=== PATIENT | male | born 1960 | race Caucasian/White ===

== ENCOUNTER → 2018-01-08 | Outpatient (CLI) | payer BC ==
--- NOTE | 2018-01-08 07:58 | MR ---
EXAMINATION TYPE: MR shoulder LT wo con DATE OF EXAM: 01/08/2018 COMPARISON: NONE HISTORY: RTC disorder, left shoulder pain TECHNIQUE: Multiplanar, multisequence imaging of the left shoulder is performed without contrast. FINDINGS: Rotator Cuff: Some slight increased signal just distal to the acromioclavicular junction is within th e supraspinatus tendon. This signal abnormality does not transverse the tendon. There is diffuse incr eased signal through the distal supraspinatus tendon compatible with tendinosis or possible perforati on. Signal crossing this area is not otherwise identified. There is however small amount of fluid wit hin the subacromial bursa and subdeltoid bursa. Acromioclavicular Joint: Mild hypertrophy without inferior spurring. This can contribute to impingeme nt syndrome. Glenohumeral Joint: Intact. There is likely thinning of the articular cartilage. Labrum: The labrum appears grossly intact given limitation of non-arthrogram study. Biceps Tendon: The long head of biceps is in normal location within bicipital groove. Small amount ph ysiologic fluid is adjacent. Bone marrow signal: No focal abnormal marrow signal is appreciated. Other: No additional significant abnormality is appreciated. IMPRESSION: Thickened distal supraspinatus tendon with a subchondral cyst near its insertion site and fluid withi n the subacromial bursa and subdeltoid bursa. Findings are suggestive for perforation of the distal s upraspinatus tendon.
== END | disposition home or self-care (01) ==
LOC: RADMRIMAIN 06:37
PROVIDERS: ATTEND Family Medicine
DX: M25.812 Other specified joint disorders, left shoulder (principal)

== ENCOUNTER → 2019-06-27 | Outpatient (CLI) | payer BC ==
--- NOTE | 2019-06-27 11:57 | CTL ---
EXAMINATION TYPE: CT Low Dose Lung DATE OF EXAM ORDERED: 06/27/2019 HISTORY: . Lung cancer screening CT DLP: 106.[address] CTDI: 2.8 mGy Automated exposure control for dose reduction was used. SCREENING VISIT: Initial COMPARISON: None TECHNIQUE: Low dose computed tomography scan was performed through the chest at 1 mm thick sections a nd reconstructed images in the coronal plane at [address] DIAGNOSTIC QUALITY: Satisfactory FINDINGS: LUNG NODULES: Present, detailed below: There is a 0.5 cm peripheral based nodule superior lateral right lung apex measuring 0.5 cm. Series 4 image 19. There is a 1.3 cm irregular density in the superior medial right upper lobe. Series 4 image 31. LUNGS: COPD: Severity: Mild Fibrosis: Severity: None Lymph nodes: None Other findings: None RIGHT PLEURAL SPACE: Effusion: None Calcification: None Thickening: None Pneumothorax: None LEFT PLEURAL SPACE: Effusion: None Calcification: None Thickening: None Pneumothorax: None HEART: Heart Size: Normal Coronary calcification: None Pericardial effusion: None OTHER FINDINGS: Upper abdomen: Unremarkable Bony thorax: Normal Supraclavicular region: Normal Other: Ascending thoracic aorta at the level the main pulmonary artery measures 4.0 cm. The main pul monary artery at the bifurcation measures 2.7 cm. IMPRESSION: 1. Minimal peripheral densities at the right lung apex. Follow-up exam in 6 months is recommended. Sc arring could be considered within the differential. Other etiologies including neoplasm remain within the differential. 2. Mild emphysematous change. 3. Ascending thoracic aortic aneurysm measuring 4.0 cm at the main pulmonary artery. FOLLOW UP CT CHEST RECOMMENDATION: Follow-up chest CT in [address] LUNG RAD: 3
== END | disposition home or self-care (01) ==
LOC: RADCTMAIN 07:31
PROVIDERS: ATTEND Family Medicine
DX: Z12.2 Encounter for screening for malignant neoplasm of respiratory organs (principal); J43.9 Emphysema, unspecified; I71.2 Thoracic aortic aneurysm, without rupture; Z87.891 Personal history of nicotine dependence

== ENCOUNTER → 2020-07-20 | Outpatient (CLI) | payer BC | END | disposition home or self-care (01) | LOC: LABWHC1 08:29 | PROVIDERS: ATTEND Family Medicine | DX: R06.02 Shortness of breath (principal); Z20.828 Contact with and (suspected) exposure to other viral communicable diseases | CPT/HCPCS: U0003; C9803 ==

== ENCOUNTER → 2021-10-22 | Outpatient (CLI) | payer BC ==
--- NOTE | 2021-10-22 08:39 | CTL ---
EXAMINATION TYPE: CT Low Dose Lung DATE OF EXAM ORDERED: 10/22/2021 COMPARISON: 06/27/2019 HISTORY: . Low Dose CT Lung Screening CT DLP: [address] CTDI: 1.87 mGy IV CONTRAST USED: None. SCREENING VISIT: First visit COMPARISON: None. TECHNIQUE: Low dose computed tomography scan was performed through the chest at 1 millimeter thick se ctions and reconstructed images in the coronal plane at [address] DIAGNOSTIC QUALITY: Satisfactory FINDINGS: LUNG NODULES: Nodule superior lateral right apex is 5 mm image 28 and is stable. Additional pleural-b ased nodule on the same image medially measures 9 mm versus 12 mm previously. No additional nodules a re noted. LUNGS: COPD: Severity: Mild Fibrosis: Severity:None Lymph nodes: None Other findings: None RIGHT PLEURAL SPACE: Effusion: None Calcification: None Thickening: None Pneumothorax: None LEFT PLEURAL SPACE: Effusion: None Calcification: None Thickening: None Pneumothorax: None HEART: Heart Size: Mildly enlarged Coronary calcification: Mild Pericardial effusion: None Thoracic aorta: Ascending thoracic aorta measures 4.3 cm AP dimension. OTHER FINDINGS: Upper abdomen: No significant abnormality Bony thorax: Degenerative changes Supraclavicular region: No significant abnormalityOther: No significant abnormalityI IMPRESSION: 1. Improved pleural-based right apical nodularity may reflect parenchymal scarring. Continued follow-up in one year is advised. FOLLOW UP CT CHEST RECOMMENDATION: Follow-up screening in one year CT LUNG RAD: LUNG RAD CATEGORY 2 benign
== END | disposition home or self-care (01) ==
LOC: RADCTMAIN 07:53
PROVIDERS: ATTEND Family Medicine
DX: Z12.2 Encounter for screening for malignant neoplasm of respiratory organs (principal); Z87.891 Personal history of nicotine dependence
CPT/HCPCS: 71271

== ENCOUNTER 2022-12-30 11:41 | Observation (INO) | payer BC, OTHER ==
--- NOTE | 2022-12-30 12:25 | ED ---
General Adult HPI - General Chief complaint: Chest Pain Stated complaint: Chest Pain Time Seen by Provider: 12/30/22 11:52 Source: patient Mode of arrival: ambulatory Limitations: no limitations - History of Present Illness Initial comments: Dictation was produced using [employer] dictation software. please excuse any grammatical, word or spelling errors. Chief Complaint: 62-year-old male presents emergency department for chest pain History of Present Illness: Is a 62-year-old male presents emergency department for sharp pleuritic chest pain. Patient states the pain is sharp to his left anterior chest. States it's worse when takes deep breath. Patient does complain of some mild shortness of breath. He has had a fever. He has had a mild cough today. Patient has history of hypertension. Denies any other comorbidities. He has not taken any daily medications. The ROS documented in this emergency department record has been reviewed and confirmed by me. Those systems with pertinent positive or negative responses have been documented in the HPI. All other systems are other negative and/or noncontributory. - Related Data Home Medications Medication Instructions Recorded Confirmed Ibuprofen [Advil] 400 mg PO BID PRN 12/30/22 12/30/22 [place]-3/Dha/Epa/Fish Oil [Fish Oil 1 cap PO DAILY 12/30/22 12/30/22 1,000 mg Softgel] amLODIPine BESYLATE/BENAZEPRIL 1 cap PO DAILY 12/30/22 12/30/22 [Lotrel 10-20 mg Capsule] Allergies Allergy/AdvReac Type Severity Reaction Status Date / Time No Known Allergies Allergy Verified 12/30/22 13:41 Review of Systems ROS Statement: Those systems with pertinent positive or pertinent negative responses have been documented in the HPI. ROS Other: All systems not noted in ROS Statement are negative. Past Medical History Past Medical History: No Reported History History of Any Multi-Drug Resistant Organisms: None Reported Additional Past Surgical History / Comment(s): jocy leg veins, lt neck Past Psychological History: No Psychological Hx Reported Smoking Status: Current every day smoker Past Alcohol Use History: Daily Past Drug Use History: None Reported General Exam - General Exam Comments Initial Comments: PHYSICAL EXAM: General Impression: Alert and oriented x3, not in acute distress HEENT: Normocephalic atraumatic, extra-ocular movements intact, pupils equal and reactive to light bilaterally, mucous membranes moist. Cardiovascular: Heart regular rate and rhythm Chest: Able to complete full sentences, no retractions, no tachypnea, no palpatory tenderness to the chest, pain is not reproducible with truncal rotation Abdomen: abdomen soft, non-tender, non-distended, no organomegaly Musculoskeletal: Pulses present and equal in all extremities, no peripheral edema Motor: no focal deficits noted Neurological: CN II-XII grossly intact, no focal motor or sensory deficits noted Skin: Intact with no visualized rashes Psych: Normal affect and mood Limitations: no limitations Course Vital Signs 12/30/22 12/30/22 12/30/22 11:42 11:53 12:02 Temperature 97.7 F Pulse Rate 72 72 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 fib, QRS 107, QTC 397. prolongation, no QTC prolongation, no ST or T-wave changes noted. There does not appear to be consistent P waves before each QRS. Repeat EKG shows the same suggesting that patient has new-onset A. fib Medical Decision Making - Medical Decision Making Was pt. sent in by a medical professional or institution (, PA, CONVERTER SKIMMER, urgent care, hospital, or [facility]...) When possible be specific @ -No Did you speak to anyone other than the patient for history (EMS, parent, family, police, friend...)? What history was obtained from this source @ - at the bedside who endorses patient's history present illness Did you review nursing and triage notes (agree or disagree)? Why? @ -I reviewed and agree with nursing and triage notes Were old charts reviewed (outside hosp., previous admission, EMS record, old EKG, old radiological studies, urgent care reports/EKG's, [facility] records)? Report findings @ -No old charts were reviewed Differential Diagnosis (chest pain, altered mental status, abdominal pain women, abdominal pain men, vaginal bleeding, musculoskeletal, weakness, fever, dyspnea, syncope, headache, dizziness, GI bleed, back pain, seizure, CVA, palpatations, mental health)? @ -Differential Chest Pain: Stable Angina, Unstable Angina, STEMI, NSTEMI Aortic Dissection, Pneumothorax, Musculoskeletal, Esophageal Spasm GERD, Cholecystitis, Pancreatitis, Zoster, this is not meant to be an all-inclusive list. EKG interpreted by me (3pts min.). @ -See above X-rays interpreted by me (1pt min.). @ -Nonacute CT interpreted by me (1pt min.). @ -None done U/S interpreted by me (1pt. min.). @ -None done What testing was considered but not performed or refused? (CT, X-rays, U/S, labs)? Why? @ -None What meds were considered but not given or refused? Why? @ -None Did you discuss the management of the patient with other professionals (professionals i.e. , PA, CONVERTER SKIMMER, lab, RT, psych nurse, neonatal social worker, lawyers, t eacher, employment officer, manager case management)? Give summary @ -Case discussed with hospitalist for admission Was smoking cessation discussed for >3mins.? @ -No Was critical care preformed (if so, how long)? @ -yes Were there social determinants of health that impacted care today? How? (Homeles sness, low income, unemployed, alcoholism, drug addiction, transportation, low edu. Level, literacy, decrease access to med. care, senior care, rehab)? @ -No Was there de-escalation of care discussed even if they declined (Discuss DNR or withdrawal of care, Hospice)? DNR status @ -No What co-morbidities impacted this encounter? (DM, HTN, Smoking, COPD, CAD, Cancer, CVA, ARF, Chemo, Hep., AIDS, mental health diagnosis, sleep apnea, morbid obesity)? @ -None Was patient admitted / discharged? Hospital course, mention meds given and route, prescriptions, significant lab abnormalities, going to OR and other pertinent info. @ -62-year-old male presents to emergency by for atypical chest pain. Cardiac workup was negative however patient's EKG appears to be abnormal. There is suspicion of AV dissociation versus new-onset A. fib. Patient mildly bradycardic. Troponin is negative. Vital signs remain stable. Patient will be admitted with consultation cardiology. Undiagnosed new problem with uncertain prognosis? @ -No Drug Therapy requiring intensive monitoring for toxicity (Heparin, Nitro, Insulin, Cardizem)? @ -No Were any procedures done? @ -No Diagnosis/symptom? Acute, or Chronic, or Acute on Chronic? Uncomplicated (without systemic symptoms) or Complicated (systemic symptoms)? @ -1. Arrhythmia, suspect onset A. fib Side effects of treatment? @ -No Exacerbation, Progression, or Severe Exacerbation? @ -No Poses a threat to life or bodily function? How? (Chest pain, USA, CT, pneumonia, PE, COPD, DKA, ARF, appy, cholecystitis, CVA, Diverticulitis, Homicidal, Suicidal, threat to staff... and all critical care pts) @ -yes - Lab Data Result diagrams: 12/30/22 12:16 12/30/22 12:16 Lab Results 12/30/22 12/30/22 12/30/22 Range/Units 12:16 12:16 12:16 WBC 8.0 (3.8-10.6) k/uL RBC 5.04 (4.30-5.90) m/uL Hgb 16.5 (13.0-17.5) gm/dL Hct 48.5 (39.0-53.0) % MCV 96.1 (80.0-100.0) fL MCH 32.8 (25.0-35.0) pg MCHC 34.1 (31.0-37.0) g/dL RDW 12.9 (11.5-15.5) % Plt Count 204 (150-450) k/uL MPV 8.4 Neutrophils % 63 % Lymphocytes % 30 % Monocytes % 5 % Eosinophils % 1 % Basophils % 0 % Neutrophils # 5.0 (1.3-7.7) k/uL Lymphocytes # 2.4 (1.0-4.8) k/uL Monocytes # 0.4 (0-1.0) k/uL Eosinophils # 0.0 (0-0.7) k/uL Basophils # 0.0 (0-0.2) k/uL PT 10.8 (9.0-12.0) sec INR 1.0 (<1.2) APTT 23.3 (22.0-30.0) sec D-Dimer 0.47 (<0.60) mg/L FEU Sodium 137 (137-145) mmol/L Potassium 4.4 (3.5-5.1) mmol/L Chloride 105 (98-107) mmol/L Carbon Dioxide 23 (22-30) mmol/L Anion Gap 9 mmol/L BUN 14 (9-20) mg/dL Creatinine 0.80 (0.66-1.25) mg/dL Est GFR (CKD-EPI)AfAm >90 (>60 ml/min/1.73 sqM) Est GFR (CKD-EPI)NonAf >90 (>60 ml/min/1.73 sqM) Glucose 165 H (74-99) mg/dL Calcium 9.1 (8.4-10.2) mg/dL Magnesium 1.8 (1.6-2.3) mg/dL Total Bilirubin 0.9 (0.2-1.3) mg/dL AST 23 (17-59) U/L ALT 22 (4-49) U/L Alkaline Phosphatase 64 (38-126) U/L Troponin I (0.000-0.034) ng/mL Total Protein 7.0 (6.3-8.2) g/dL Albumin 4.1 (3.5-5.0) g/dL Influenza Type A (PCR) (Not Detectd) Influenza Type B (PCR) (Not Detectd) RSV (PCR) (Not Detectd) SARS-CoV-2 (PCR) (Not Detectd) 12/30/22 12/30/22 Range/Units 12:16 12:54 WBC (3.8-10.6) k/uL RBC (4.30-5.90) m/uL Hgb (13.0-17.5) gm/dL Hct (39.0-53.0) % MCV (80.0-100.0) fL MCH (25.0-35.0) pg MCHC (31.0-37.0) g/dL RDW (11.5-15.5) % Plt Count (150-450) k/uL MPV Neutrophils % % Lymphocytes % % Monocytes % % Eosinophils % % Basophils % % Neutrophils # (1.3-7.7) k/uL Lymphocytes # (1.0-4.8) k/uL Monocytes # (0-1.0) k/uL Eosinophils # (0-0.7) k/uL Basophils # (0-0.2) k/uL PT (9.0-12.0) sec INR (<1.2) APTT (22.0-30.0) sec D-Dimer (<0.60) mg/L FEU Sodium (137-145) mmol/L Potassium (3.5-5.1) mmol/L Chloride (98-107) mmol/L Carbon Dioxide (22-30) mmol/L Anion Gap mmol/L BUN (9-20) mg/dL Creatinine (0.66-1.25) mg/dL Est GFR (CKD-EPI)AfAm (>60 ml/min/1.73 sqM) Est GFR (CKD-EPI)NonAf (>60 ml/min/1.73 sqM) Glucose (74-99) mg/dL Calcium (8.4-10.2) mg/dL Magnesium (1.6-2.3) mg/dL Total Bilirubin (0.2-1.3) mg/dL AST (17-59) U/L ALT (4-49) U/L Alkaline Phosphatase (38-126) U/L Troponin I <0.012 (0.000-0.034) ng/mL Total Protein (6.3-8.2) g/dL Albumin (3.5-5.0) g/dL Influenza Type A (PCR) Not Detected (Not Detectd) Influenza Type B (PCR) Not Detected (Not Detectd) RSV (PCR) Not Detected (Not Detectd) SARS-CoV-2 (PCR) Not Detected (Not Detectd) Disposition Clinical Impression: Arrhythmia Disposition: [facility] Condition: Serious Referrals: Osmin Myers MD [Primary Care Provider] - 1-2 days Decision Time: 14:24
--- NOTE | 2022-12-30 12:40 | XR ---
EXAMINATION TYPE: XR chest 2V DATE OF EXAM: 12/30/2022 COMPARISON: None INDICATION: Difficulty breathing TECHNIQUE: Frontal and lateral views of the chest are obtained. FINDINGS: The heart size is normal. The pulmonary vasculature is normal. The lungs are clear. There is increased retrosternal airspace and AP diameter. Pectus jewel may be present. IMPRESSION: 1. No acute pulmonary process.
[2022-12-30 12:44] LABS: ALT 22 U/L (4-49); AST 23 U/L (17-59); African American GFR (CKD) >90 (>60 ml/min/1.73 sqM); Albumin 4.1 g/dL (3.5-5.0); Alkaline Phosphatase 64 U/L (38-126); Anion Gap 9 mmol/L; Blood Urea Nitrogen 14 mg/dL (9-20); Calcium 9.1 mg/dL (8.4-10.2); Carbon Dioxide 23 mmol/L (22-30); Chloride 105 mmol/L (98-107); Glucose 165 mg/dL (74-99); Magnesium 1.8 mg/dL (1.6-2.3); Non-African American GFR(CKD) >90 (>60 ml/min/1.73 sqM); Potassium 4.4 mmol/L (3.5-5.1); Sodium 137 mmol/L (137-145); Total Bilirubin 0.9 mg/dL (0.2-1.3)
[2022-12-30 12:52] LABS: Basophils % (A) 0 %; Eosinophils % (A) 1 %; HCT 48.5 % (39.0-53.0); HGB 16.5 gm/dL (13.0-17.5); Lymphocytes # (A) 2.4 k/uL (1.0-4.8); Lymphocytes % (A) 30 %; MCH 32.8 pg (25.0-35.0); MCHC 34.1 g/dL (31.0-37.0); MCV 96.1 fL (80.0-100.0); Mean Platelet Volume 8.4; Monocytes # (A) 0.4 k/uL (0-1.0); Monocytes % (A) 5 %; Neutrophils % (A) 63 %; Platelet Count 204 k/uL (150-450); RBC 5.04 m/uL (4.30-5.90); RDW 12.9 % (11.5-15.5)
[2022-12-30 13:19] LABS: Partial Thromboplastin Time 23.3 sec (22.0-30.0); Prothrombin Time 10.8 sec (9.0-12.0)
[2022-12-30] MEDS ORDERED: ASPIRIN 81 MG PO STA (14:18)
[2022-12-30] MEDS ORDERED: NALOXONE 0.4 MG/ML 1 ML VIAL IV PRN (14:19)
[2022-12-30] MEDS ORDERED: HEPARIN SODIUM 1,000 UN/ML (10ML VL) IV ONE (14:21)
[2022-12-30] MEDS ORDERED: HEPARIN SODIUM 1,000 UN/ML (10ML VL) IV PRN (14:21)
[2022-12-30] MEDS ORDERED: HEPARIN SOD,PORK IN 0.45% NACL 25,000 UNIT in 0.45% NACL 1 250ML.BAG IV SCH (14:30)
[2022-12-30] MEDS: SODIUM CHLORIDE 0.9% 1,000 ML IV SCH (15:30)
--- NOTE | 2022-12-31 13:59 | P.CRDCN ---
History of Present Illness Consult date: 12/31/22 Requesting physician: Osmin Myers Reason for Consult (text): bradycardia, arrhythmia Chief complaint: chest pain, dizziness History of present illness: This is a pleasant 62-year-old gentleman with prior history of hypertension, nicotine dependence of about one pack per day. Denies any history of hyperlipidemia or diabetes. Family history of CAD in his father who of a [facility] at the age of 57. 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 Admits to drinking about 5-6 beers per day. He is retired but remains quite active. He presented to the emergency department with complaints of sharp left-sided chest discomfort as well as dizziness. The chest discomfort occurred shortly after w aking up and not related to physical activity. Worsened with certain movements and deep inspiration. Pain has currently resolved but continues to have some discomfort with deep inspiration. EKG showed question of atrial fibrillation but upon review does not appear to be atrial fibrillation. Troponin was negative. He felt the dizziness could've been from not eating but did not resolve after eating breakfast yesterday. He has not had symptoms like this before. He does not recall his heart rate ever being low. He remains bradycardic. Heart rate is mostly in the 40s. Currently denies any complaints of dizziness. He is currently on heparin drip. Blood pressure is stable. He denies any shortness of breath, orthopnea or PND. Denies any syncope. Denies any nausea or heartburn. Past Medical History Past Medical History: No Reported History History of Any Multi-Drug Resistant Organisms: None Reported Additional Past Surgical History / Comment(s): jocy leg veins, lt neck Past Anesthesia/Blood Transfusion Reactions: No Reported Reaction Past Psychological History: No Psychological Hx Reported Smoking Status: Current every day smoker Past Alcohol Use History: Daily Past Drug Use History: None Reported Medications and Allergies Home Medications Medication Instructions Recorded Confirmed Type Ibuprofen [Advil] 400 mg PO BID PRN 12/30/22 12/30/22 History [place]-3/Dha/Epa/Fish Oil [Fish Oil 1 cap PO DAILY 12/30/22 12/30/22 History 1,000 mg Softgel] amLODIPine BESYLATE/BENAZEPRIL 1 cap PO DAILY 12/30/22 12/30/22 History [Lotrel 10-20 mg Capsule] Allergies Allergy/AdvReac Type Severity Reaction Status Date / Time No Known Allergies Allergy Verified 12/30/22 13:41 Physical Exam Vitals: Vital Signs Temp Pulse Pulse Resp BP BP Pulse Ox 12/31/22 09:22 99 12/31/22 06:58 97.9 F 41 L 18 116/78 99 12/31/22 02:41 98.4 F 55 L 17 124/65 96 12/30/22 19:18 98.2 F 54 L 18 111/69 95 12/30/22 17:30 51 L 12/30/22 17:09 97.9 F 51 L 18 118/77 98 12/30/22 16:50 45 L 18 104/54 99 12/30/22 15:33 48 L 18 96/73 97 12/30/22 14:00 43 L 18 92/57 98 12/30/22 13:00 76 18 114/75 99 12/30/22 12:02 72 18 125/97 99 12/30/22 11:53 18 L 12/30/22 11:42 97.7 F 72 20 135/83 99 Intake and Output 12/30/22 12/31/22 12/31/22 22:59 06:59 14:59 Intake Total 66 94.57 Balance 66 94.57 Intake: Intake, IV Titration 66 94.57 Amount Heparin Sod,Pork in 0.45% 66 94.57 NaCl 25,000 unit In 0.45 % NaCl 1 250ml.bag @ 11. 134 UNITS/KG/HR 10 mls/hr IV .Q24H COUNTS INCLUDE 234 BEDS AT THE [facility] Rx#: [id number] Other: # Voids 1 1 Weight 89.811 kg PHYSICAL EXAMINATION: This is a 62-year-old gentleman in no apparent distress at the time of my examination. HEENT: Head is atraumatic, normocephalic. Pupils are equal, round. Sclerae ani cteric. Conjunctivae are clear. Mucous membranes of the mouth are moist. Neck is supple. There is no elevated jugular venous pressure. No carotid bruit is heard. CHEST EXAMINATION: Lungs Reveal diminished air entry bilaterally. No wheezes rales or rhonchi. Respirations even and nonlabored. HEART EXAMINATION: Heart regular, bradycardia noted, positive S1 and S2. No S3. No S4. No clicks, rubs or murmurs. ABDOMEN: Soft, nontender. Bowel sounds are heard. No organomegaly noted. EXTREMITIES: 2+ peripheral pulses with no evidence of peripheral edema and no calf tenderness noted. NEUROLOGIC EXAMINATION: Patient is awake, alert and oriented x3. Results 12/30/22 12:16 12/30/22 12:16 Cardiac Enzymes 12/30/22 12/30/22 Range/Units 12:16 12:16 AST 23 (17-59) U/L Troponin I <0.012 (0.000-0.034) ng/mL Coagulation 12/30/22 12/30/22 12/31/22 Range/Units 12:16 21:03 04: PT 10.8 (9.0-12.0) sec APTT 23.3 31.9 H 57.0 H (22.0-30.0) sec CBC 12/30/22 Range/Units 12:16 WBC 8.0 (3.8-10.6) k/uL RBC 5.04 (4.30-5.90) m/uL Hgb 16.5 (13.0-17.5) gm/dL Hct 48.5 (39.0-53.0) % Plt Count 204 (150-450) k/uL Comprehensive Metabolic Panel 12/30/22 Range/Units 12:16 Sodium 137 (137-145) mmol/L Potassium 4.4 (3.5-5.1) mmol/L Chloride 105 (98-107) mmol/L Carbon Dioxide 23 (22-30) mmol/L BUN 14 (9-20) mg/dL Creatinine 0.80 (0.66-1.25) mg/dL Glucose 165 H (74-99) mg/dL Calcium 9.1 (8.4-10.2) mg/dL AST 23 (17-59) U/L ALT 22 (4-49) U/L Alkaline Phosphatase 64 (38-126) U/L Total Protein 7.0 (6.3-8.2) g/dL Albumin 4.1 (3.5-5.0) g/dL Current Medications Generic Name Dose Route Start Last Admin Trade Name Freq PRN Reason Stop Dose Admin Heparin Sodium (Porcine) 0 unit 12/30/22 14:21 12/30/22 22:16 Heparin Sodium 1,000 Un/Ml (10ml Vl) IV 4,000 unit PER PROTOCOL PRN Administration Low PTT Protocol Sodium Chloride 1,000 mls @ 20 mls/hr 12/30/22 14:30 12/30/22 15:30 Saline 0.9% IV 20 mls/hr .Q24H VIOLETTA Administration Naloxone HCl 0.2 mg 12/30/22 14:19 Naloxone 0.4 Mg/Ml 1 Ml Vial IV Q2M PRN Opioid Reversal Intake and Output 12/30/22 12/31/22 12/31/22 22:59 06:59 14:59 Intake Total 66 94.57 Balance 66 94.57 Intake: Intake, IV Titration 66 94.57 Amount Heparin Sod,Pork in 0.45% 66 94.57 NaCl 25,000 unit In 0.45 % NaCl 1 250ml.bag @ 11. 134 UNITS/KG/HR 10 mls/hr IV .Q24H VIOLETTA Rx#: [id number] Other: # Voids 1 1 Weight 89.811 kg 12/30/22 12:16 12/30/22 12:16 Assessment and Plan Assessment: #1 chest pain, atypical, reproducible with deep inspiration, troponin negative 1 no evidence of ischemia on EKG. #2 bradycardia #3 hypertension, currently normotensive #4 dizziness could be related to underlying bradycardia Plan: From cardiology's perspective will obtain a 2-D echo with Doppler study. Hold antihypertensives at this time his blood pressure is 110s to 120s systolic. D iscontinue IV heparin is no evidence of atrial fibrillation. We'll continue to monitor the patient provide further recommendations accordingly. QUALITY IMPROVEMENT CONSULTANT note has been reviewed, I agree with a documented findings and plan of care. Patient was seen and examined.
[2022-12-31] MEDS: SODIUM CHLORIDE 0.9% 1,000 ML IV SCH (18:13)
[2023-01-01] MEDS ORDERED: IPRATROPIUM-ALBUTEROL 3 ML NEB INHALATION PRN (01:06)
--- NOTE | 2023-01-01 01:17 | P.HPIM ---
History of Present Illness H&P Date: 12/31/22 Chief Complaint: Chest pain Patient is a 62-year-old male without history of hypertension currently everyday smoker presents to ER with complaints of chest pain/discomfort while he was at rest. Mainly mid retrosternal and worsens with deep breathing. No radiation of the pain. Mild dizziness. No diaphoresis. Patient denies any fever or chills. No cough or sputum production. Denies any recent illnesses. No leg swelling or calf tenderness. Patient does drink daily about 5-6 beers and also smokes about half a pack a day. Denies any recent travel or sick contacts at home. On admission EKG showed atrial fibrillation with slow ventricular rate. Chest x- ray showed no acute cardiopulmonary process. Laboratory showed WBC 8.0 hemoglobin 16.5 and platelets 204 D-dimer 0.47 not elevated Sodium 147 potassium 4.4 chloride 105 bicarb is 23 BUN 14 and creatinine 0.8 and blood sugar is 165 on admission troponin x1 negative and TSH level is 0.810 Influenza A, B, RSV and COVID-19 PCR not detected. Review of Systems Constitutional: Patient denies any fever or chills . no Generalized weakness. Abdomen: Patient denied any nausea or vomiting or abd. pain Cardiovascular: Patient does have chest pain with deep breathing. No short of breath no palpitations. No leg swelling. Respiratory: patient denied any cough . no sputum production. No shortness of breath Neurologic: Patient denied any numbness or tingling headache. Musculoskeletal: Patient denies any complaints of joint swelling or deformity. Skin: Negative Psychiatric: Negative Endocrine: No heat or cold intolerance. No recent weight gain. Genitourinary: No dysuria or hematuria. All other 14 point ROS negative except the above Past Medical History Past Medical History: No Reported History History of Any Multi-Drug Resistant Organisms: None Reported Additional Past Surgical History / Comment(s): jocy leg veins, lt neck Past Anesthesia/Blood Transfusion Reactions: No Reported Reaction Past Psychological History: No Psychological Hx Reported Smoking Status: Current every day smoker Past Alcohol Use History: Daily Past Drug Use History: None Reported Medications and Allergies Home Medications Medication Instructions Recorded Confirmed Type Ibuprofen [Advil] 400 mg PO BID PRN 12/30/22 12/30/22 History [place]-3/Dha/Epa/Fish Oil [Fish Oil 1 cap PO DAILY 12/30/22 12/30/22 History 1,000 mg Softgel] amLODIPine BESYLATE/BENAZEPRIL 1 cap PO DAILY 12/30/22 12/30/22 History [Lotrel 10-20 mg Capsule] Allergies Allergy/AdvReac Type Severity Reaction Status Date / Time No Known Allergies Allergy Verified 12/30/22 13:41 Physical Exam Vitals: Vital Signs Temp Pulse Pulse Resp BP BP Pulse Ox 12/31/22 09:22 99 12/31/22 06:58 97.9 F 41 L 18 116/78 99 12/31/22 02:41 98.4 F 55 L 17 124/65 96 12/30/22 19:18 98.2 F 54 L 18 111/69 95 12/30/22 17:30 51 L 12/30/22 17:09 97.9 F 51 L 18 118/77 98 12/30/22 16:50 45 L 18 104/54 99 12/30/22 15:33 48 L 18 96/73 97 12/30/22 14:00 43 L 18 92/57 98 12/30/22 13:00 76 18 114/75 99 12/30/22 12:02 72 18 125/97 99 12/30/22 11:53 18 L 12/30/22 11:42 97.7 F 72 20 135/83 99 Intake and Output 12/30/22 12/31/22 12/31/22 22:59 06:59 14:59 Intake Total 66 94.57 Balance 66 94.57 Intake: Intake, IV Titration 66 94.57 Amount Heparin Sod,Pork in 0.45% 66 94.57 NaCl 25,000 unit In 0.45 % NaCl 1 250ml.bag @ 11. 134 UNITS/KG/HR 10 mls/hr IV .Q24H [facility] Rx#: [id number] Other: # Voids 1 1 Weight 89.811 kg PHYSICAL EXAMINATION: Patient is lying in the bed comfortably, no acute distress, awake alert and oriented.. HEENT: Normocephalic. Neck is supple. Pupils reactive. Nostrils clear. Oral cavity is moist. Neck reveals no JVD, carotid bruits, or thyromegaly. CHEST EXAMINATION: Trachea is central. Symmetrical expansion. No wheezing or rhonchi. Bibasilar diminished sounds.. CARDIAC: Normal S1, S2 with no gallops. No murmurs ABDOMEN: Soft. Bowel sounds present. Nontender. No organomegaly. No abdominal bruits. Extremities: reveal no edema. No clubbing or cyanosis Neurologically awake, alert, oriented x3 with well-coordinated movements. No focal deficits noted Skin: No rash or skin lesions. Psychiatric: Coperative. Nonsuicidal, Musculoskeletal: No joint swelling or deformity. Normal range of motion. Results CBC & Chem 7: 12/30/22 12:16 12/30/22 12:16 Labs: Abnormal Lab Results - Last 24 Hours (Table) 12/30/22 12/30/22 12/31/22 Range/Units 12:16 21:03 04: APTT 31.9 H 57.0 H (22.0-30.0) sec Glucose 165 H (74-99) mg/dL Thrombosis Risk Factor Assmnt - DVT/VTE Prophylaxis DVT/VTE Prophylaxis: Pharmacologic Prophylaxis ordered - Choose All That Apply Any of the Below Risk Factors Present?: No Other Risk Factors: Yes Each Risk Factor Represents 2 Points: Age 61-74 years Other congenital or acquired thrombophilia - If yes, enter type in comment: No Thrombosis Risk Factor Assessment Total Risk Factor Score: 2 Thrombosis Risk Factor Assessment Level: Low Risk Assessment and Plan Assessment: Pleuritic chest pain, worsens with deep breathing. D-dimer not elevated. No evidence of pneumonia on chest x-ray. Questionable atrial fibrillation with slow ventricular rate on EKG. No evidence of atrial fibrillation as per cardiology evaluation. Sinus bradycardia Hypertension. Blood pressure is not elevated currently Ongoing nicotine addiction Daily alcohol use GI and DVT prophylaxis Plan: Patient will be continued on telemetry monitoring. Troponin x1 negative and D- dimer is not elevated. TSH level within normal limits. No evidence of pneumonia on chest x-ray. Cardiology is on board. 2D echocardiogram was ordered. Will be started on DuoNebs as needed for shortness of breath and increase deep breathing exercise. Follow-up CBC and BMP tomorrow. Smoking cessation and alcohol abstinence has been counseled extensively. Time with Patient: Greater than 30
[2023-01-01 04:29] LABS: African American GFR (CKD) >90 (>60 ml/min/1.73 sqM); Anion Gap 4 mmol/L; Blood Urea Nitrogen 14 mg/dL (9-20); Calcium 8.4 mg/dL (8.4-10.2); Carbon Dioxide 27 mmol/L (22-30); Chloride 108 mmol/L (98-107); Glucose 88 mg/dL (74-99); Non-African American GFR(CKD) >90 (>60 ml/min/1.73 sqM); Potassium 5.1 mmol/L (3.5-5.1); Sodium 139 mmol/L (137-145)
[2023-01-01] MEDS ORDERED: HEPARIN SODIUM,PORCINE/PF 5,000 UNIT/0.5 ML SYRINGE SQ SCH (08:00)
[2023-01-01 08:26] VITALS: RESP 16
[2023-01-01] MEDS ORDERED: FOLIC ACID 1 MG TAB PO SCH (09:00)
[2023-01-01] MEDS ORDERED: THIAMINE 100 MG TAB PO SCH (09:00)
[2023-01-01] MEDS ORDERED: ASPIRIN 81 MG PO SCH (09:00)
[2023-01-01] MEDS: FAMOTIDINE 20 MG TAB PO SCH ×2 (09:16→09:19)
[2023-01-01 10:36] LABS: Basophils # (A) 0.04 X 10*3/uL (0.00-0.10); Basophils % (A) 0.7 %; Eosinophils # (A) 0.11 X 10*3/uL (0.04-0.35); HCT 43.9 % (39.6-50.0); HGB 14.7 g/dL (13.0-17.0); Immature Grans, Automated 0.2 %; Lymphocytes # (A) 2.74 X 10*3/uL (0.90-5.00); MCH 32.5 pg (27.0-32.0); MCHC 33.5 g/dL (32.0-37.0); MCV 96.9 fL (80.0-97.0); Mean Platelet Volume 10.7 fL (9.5-12.2); Monocytes # (A) 0.48 X 10*3/uL (0.20-1.00); Monocytes % (A) 8.6 %; NRBC Per 100 WBC 0 /100 WBCS (0.0-0.0); Neutrophils # (A) 2.21 X 10*3/uL (1.80-7.70); Neutrophils % (A) 39.5 %; Platelet Count 167 X 10*3/uL (140-440); RBC 4.53 X 10*6/uL (4.40-5.60); RDW 13.2 % (11.5-14.5); WBC 5.59 X 10*3/uL (4.50-10.00)
--- NOTE | 2023-01-01 11:09 | P.PN ---
Subjective Progress Note Date: 01/01/23 This is a pleasant 62-year-old gentleman with prior history of hypertension, nicotine dependence of about one pack per day. Denies any history of hyperlipidemia or diabetes. Family history of CAD in his father who of a NH at the age of 57. 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 Admits to dr laraing about 5-6 beers per day. He is retired but remains quite active. He presented to the emergency department with complaints of sharp left-sided chest discomfort as well as dizziness. The chest discomfort occurred shortly after waking up and not related to physical activity. Worsened with certain movements and deep inspiration. Pain has currently resolved but continues to have some discomfort with deep inspiration. EKG showed question of atrial fibrillation but upon review does not appear to be atrial fibrillation. There are brief episodes of AV block noted. Troponin was negative. He felt the dizziness could've been from not eating but did not resolve after eating breakfast yeste rday. He has not had symptoms like this before. He does not recall his heart rate ever being low. He remains bradycardic. Heart rate is mostly in the 40s. Currently denies any complaints of dizziness. He is currently on heparin drip. Blood pressure is stable. He denies any shortness of breath, orthopnea or PND. Denies any syncope. Denies any nausea or heartburn. 01/01/2023 Patient was seen and examined sitting in a chair. He is overall feeling better. Denies any further complaints of dizziness. Denies any further complaints of chest discomfort. Continues to be bradycardic with no evidence of AV block at this time. Heart rate in the high 30s to 40s mostly. Blood pressure is well- controlled off antihypertensives. Echocardiogram to be done today. Objective - Vital Signs Vital signs: Vital Signs Temp 98.2 F 01/01/23 07:00 Pulse 45 L 01/01/23 07:00 Resp 16 01/01/23 07:00 BP 102/69 01/01/23 07:00 Pulse Ox 97 01/01/23 07:00 FiO2 Intake & Output 12/31/22 01/01/23 01/01/23 18:59 06:59 18:59 Intake Total 236 118 Balance 236 118 Intake: Oral 236 118 Other: # Voids 3 1 - Exam PHYSICAL EXAMINATION: This is a 62-year-old gentleman in no apparent distress at the time of my examination. HEENT: Head is atraumatic, normocephalic. Pupils are equal, round. Sclerae anicteric. Conjunctivae are clear. Mucous membranes of the mouth are moist. Neck is supple. There is no elevated jugular venous pressure. No carotid bruit is heard. CHEST EXAMINATION: Lungs Reveal diminished air entry bilaterally. No wheezes rales or rhonchi. Respirations even and nonlabored. HEART EXAMINATION: Heart regular, bradycardia noted, positive S1 and S2. No S3. No S4. No clicks, rubs or murmurs. ABDOMEN: Soft, nontender. Bowel sounds are heard. No organomegaly noted. EXTREMITIES: 2+ peripheral pulses with no evidence of peripheral edema and no calf tenderness noted. NEUROLOGIC EXAMINATION: Patient is awake, alert and oriented x3. - Labs CBC & Chem 7: 01/01/23 03:41 01/01/23 03:46 Labs: Abnormal Lab Results - Last 24 Hours (Table) 01/01/23 Range/Units 03:46 Chloride 108 H (98-107) mmol/L Assessment and Plan Assessment: #1 chest pain, atypical, reproducible with deep inspiration, troponin negative 1 no evidence of ischemia on EKG. #2 bradycardia #3 hypertension, currently normotensive #4 dizziness could be related to underlying bradycardia #5 nicotine dependence Plan: From cardiology's perspective will obtain a 2-D echo with Doppler study today. Continue to Hold antihypertensives at this time his blood pressure is 110s to 120s systolic. If there is no significant abnormalities noted on echocardiogram and patient remains asymptomatic with no further evidence of AVB patient may be discharged home and obtain an event monitor from our office. Anticipate scheduling outpatient stress testing. LEASING ASSOCIATE note has been reviewed, I agree with a documented findings and plan of care. Patient was seen and examined.
--- NOTE | 2023-01-01 13:46 | CA ---
Transthoracic Echo Report Name: Jovon Bowers Age: 62 Gender: M : 1960 Exam Date: 01/01/2023 10:28 Exam Location: [facility] Ht (in): 73 Wt (lb): 191 Ordering Physician: Otilia Benson MD ([id number]) Attending/Referring Phys: Manager Of Distribution Lynn Beebe RDCS Procedure CPT: Indications: CP Cardiac Hx: Technical Quality: Good Contrast 1: Total Dose (mL): Contrast 2: Total Dose (mL): MEASUREMENTS (Male / Female) Normal Values 2D ECHO LV Diastolic Diameter PLAX 5.6 cm 4.2 - 5.9 / 3.9 - 5.3 cm LV Systolic Diameter PLAX 4.4 cm IVS Diastolic Thickness 0.9 cm 0.6 - 1.0 / 0.6 - 0.9 cm LVPW Diastolic Thickness 0.9 cm 0.6 - 1.0 / 0.6 - 0.9 cm LV Relative Wall Thickness 0.3 RV Internal Dim ED PLAX 4.6 cm LA Systolic Diameter LX 4.2 cm 3.0 - 4.0 / 2.7 - 3.8 cm LV Diastolic Volume MOD BP 141.5 cm??? 67 - 155 / 56 - 104 cm??? LV Systolic Volume MOD BP 51.9 cm??? 22 - 58 / 19 - 49 cm??? LV Ejection Fraction MOD BP 63.3 % >= 55 % LV Diastolic Volume MOD 4C 123.2 cm??? LV Systolic Volume MOD 4C 50.3 cm??? LV Ejection Fraction MOD 4C 59.2 % LV Diastolic Length 4C 7.6 cm LV Systolic Length 4C 6.4 cm LV Diastolic Volume MOD 2C 150.0 cm??? LV Systolic Volume MOD 2C 46.1 cm??? LV Ejection Fraction MOD 2C 69.3 % LV Diastolic Length 2C 6.9 cm LV Systolic Length 2C 5.3 cm LA Volume 124.0 cm??? 18 - 58 / 22 - 52 cm??? M-MODE Aortic Root Diameter MM 4.3 cm MV E Point Septal Separation 0.5 cm AV Cusp Separation MM 2.3 cm DOPPLER AV Peak Velocity 147.5 cm/s AV Peak Gradient 8.7 mmHg MV Area PHT 3.7 cm??? Mitral E Point Velocity 59.5 cm/s Mitral A Point Velocity 37.5 cm/s Mitral E to A Ratio 1.6 MV Deceleration Time 206.8 ms MV E' Velocity 9.1 cm/s Mitral E to MV E' Ratio 6.6 TR Peak Velocity 258.2 cm/s TR Peak Gradient 26.7 mmHg Right Ventricular Systolic Press 31.4 mmHg FINDINGS Left Ventricle Left ventricular ejection fraction is estimated at 55-60 %. Left ventricular cavity size normal. Left ventricular wall thickness normal. No obvious regional wall motion abnormalities. Right Ventricle Moderate right ventricular dilatation. Right ventricular systolic pressure within normal limits. Right Atrium Mild right atrial dilatation. Left Atrium Mildly increased left atrial diameter. Severely increased left atrial volume. Mildly increased left atrial area. Mitral Valve Structurally normal mitral valve. Mild mitral regurgitation. Aortic Valve Trileaflet aortic valve. No aortic valve stenosis or regurgitation. Tricuspid Valve Structurally normal tricuspid valve. Mild to moderate tricuspid regurgitation. Pulmonic Valve Structurally normal pulmonic valve. Mild pulmonic regurgitation. Pericardium Normal pericardium. No pericardial effusion. Aorta Moderate aortic dilatation at the level of the sinuses of valsalva 43 mm CONCLUSIONS 1. Normal left ventricle size and systolic function 2. Moderately dilated right ventricle with no evidence of pulmonary hypertension 3. Mild mitral and pulmonic regurgitation 4. [id number] tricuspid regurgitation Previewed by: Dr. Otilia Benson MD (Electronically Signed) Final Date: 01 January 2023 13:46
[2023-01-01 14:31] VITALS: BP 130/81; PULSE 46; TEMP 97.5
== END 2023-01-01 14:27 | disposition home or self-care (01) ==
LOC: EC 11:41 → 3SCARD 14:35 → 6NMEDSUR 14:54
PROVIDERS: ADMIT Family Medicine; ATTEND Family Medicine
DX: R07.89 Other chest pain (principal); R00.1 Bradycardia, unspecified; R42 Dizziness and giddiness; I10 Essential (primary) hypertension; F10.20 Alcohol dependence, uncomplicated; F17.200 Nicotine dependence, unspecified, uncomplicated; Z20.822 Contact with and (suspected) exposure to COVID-19; Z79.899 Other long term (current) drug therapy; Z82.49 Family history of ischemic heart disease and other diseases of the circulatory system
CPT/HCPCS: 96361; 96366 ×3; 96372; 96376 ×2; 96365; 99285; 36415; 94760; 93005; 93306; 85379; 80053; 80048; 84443; 83735; 84484; 85025 ×2; 85610; 85730 ×3; 83036; 87636; 71046; G0378 ×3; J1644 ×3

== ENCOUNTER → 2023-03-02 | Outpatient (CLI) | payer OTHER ==
[2023-03-02 21:10] LABS: HCT 51.6 % (39.6-50.0); HGB 17.5 d/dL (12.0-15.0); MCH 33.1 pg (27.0-32.0); MCHC 33.9 d/dL (32.0-37.0); MCV 97.7 FL (80.0-97.0); NRBC Per 100 WBC 0 X 10*3/uL (0.00-0.01); Platelet Count 176 X 10*3/uL (140-440); RBC 5.28 X 10*6/uL (4.40-5.60); RDW 13.2 % (11.5-14.5); WBC 6.19 X 10*3/uL (4.50-10.00)
[2023-03-02 21:36] LABS: Blood Urea Nitrogen 14.7 mg/dL (9.0-27.0); Carbon Dioxide 22.6 mmol/L (21.6-31.8); Chloride 105 mmol/L (96-109); Potassium 4.3 mmol/L (3.5-5.5); Sodium 140 mmol/L (135-145)
== END | disposition home or self-care (01) ==
LOC: LABPAT 10:45
PROVIDERS: ATTEND Internal Medicine Interventional Cardiology
DX: Z01.812 Encounter for preprocedural laboratory examination (principal); R94.39 Abnormal result of other cardiovascular function study
CPT/HCPCS: 80051; 82565; 84520; 85027

== ENCOUNTER 2023-03-20 07:39 | Day surgery (SDC) | payer OTHER ==
[2023-03-16 10:32] VITALS: BMI 25.4
[~2023-03-20 07:39] MED LIST: ALPRAZolam 0.25 MG TAB PO PRN; ALPRAZolam 0.5 MG TAB PO PRN; ASPIRIN 325 MG TAB PO STA; NITROGLYCERIN SL TABS 0.4 MG TAB SUBLINGUAL PRN; SODIUM CHLORIDE 0.9% 1,000 ML in EMPTY BAG 1 BAG IV SCH
[2023-03-20 08:10] VITALS: RESP 16; TEMP 97.6
[2023-03-20] MEDS ORDERED: HEPARIN SODIUM 1,000 UN/ML (10ML VL) ONE (08:24)
[2023-03-20] MEDS ORDERED: fentaNYL (PF) 50 MCG/ML 2 ML AMP ONE (08:25)
[2023-03-20] MEDS ORDERED: VERAPAMIL 2.5 MG/ML 2 ML AMP ONE (08:25)
[2023-03-20] MEDS ORDERED: fentaNYL (PF) 50 MCG/1 ML VIAL IVP ONE (09:27)
[2023-03-20] MEDS ORDERED: LIDOCAINE 1% INJ 10MG/ML (5 ML VIAL-PF) SQ ONE (09:31)
[2023-03-20] MEDS ORDERED: VERAPAMIL SYRINGE (5 MG/10 ML) INTRAARTER ONE (09:33)
[2023-03-20] MEDS ORDERED: MIDAZOLAM 2 MG/2 ML VIAL IVP ONE (09:35)
[2023-03-20] MEDS ORDERED: HEPARIN SODIUM 1,000 UN/ML (10ML VL) IV ONE (09:37)
[2023-03-20] MEDS ORDERED: IOPAMIDOL-370 100ML BTL INJ ONE (09:43)
[2023-03-20] MEDS ORDERED: RX INFO: IV CONTRAST WAS GIVEN 1 EACH MISC MISCELLANE PRN (09:59)
[2023-03-20] MEDS ORDERED: SODIUM CHLORIDE 0.9% 1,000 ML IV SCH (10:00)
--- NOTE | 2023-03-20 10:05 | P.CARDCATH ---
Date of Procedure: 03/20/23 Description of Procedure: Cardiac Catheterization: The patient is a 62-year-old male with a known history hypertension and hyperlipidemia, chronic tobacco use who had an abnormal MPI. Recommendations were made regarding cardiac catheterization, the risks and the complications were discussed with the patient who is in full understanding and agreement. 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 Using Xylocaine Anesthesia and Seldinger technique, a 6-Sinhala sheath was introduced in the right radial artery . Subsequently, selective coronary angiography was performed using a 5-Sinhala 3.5 bend Jeff catheter. Multiple views of the coronary artery including hemiaxial views were obtained. The right Jeff catheter was used to cross the aortic valve and LVEDP was calculated. Following that, catheter and sheath were removed. Hemostasis was obtained with deployment of TR band . There was no immediate complication. Patient was returned to room in stable condition. Of note, the patient received a total of 4500 units of intravenous heparin as well as intra-arterial verapamil. Findings: Left main: This is a large sized vessel, bifurcating into LAD and circumflex, left main has no high-grade stenosis LAD: This is a large size vessel reaching to the apex tapers down distally, the LAD has no evidence of obstructive disease Left circumflex: This is a nondominant vessel, giving rise to a large obtuse marginal branch, the left circumflex in the mid segment has 20-30% plaque RCA: This is a large dominant vessel, bifurcating distally to PDA and PLV. The midright coronary artery has a 20-30% plaque Left Ventriculogram: Not performed Hemodynamics: There was no gradient across the aortic valve, LVEDP was 12-15 mmHg Conclusion: 1. Mild disease in the mid RCA and circumflex 2. No obstructive disease in the LAD and left main 3. Right dominance 4. Normal LVEDP Recommendations: The patient will continue on the aggressive coronary risks modifications including smoking cessation. The findings and the recommendations were discussed with the patient and the family and they were in full understanding and agreement. Duration of sedation is 13 minutes.
[2023-03-20 13:16] VITALS: BP 127/84; PULSE 50
[2023-03-21] MEDS ORDERED: ATORVASTATIN 40 MG TAB PO SCH (09:00)
[2023-03-21] MEDS ORDERED: CLOPIDOGREL 75 MG TAB PO SCH (09:00)
[2023-03-21] MEDS ORDERED: ASPIRIN 81 MG PO SCH (09:00)
[2023-03-21] MEDS ORDERED: lisinopriL 5 MG TAB PO SCH (09:00)
== END 2023-03-20 13:52 | disposition home or self-care (01) ==
LOC: CATHCVL 07:39
PROVIDERS: ATTEND Internal Medicine Interventional Cardiology
DX: I25.10 Atherosclerotic heart disease of native coronary artery without angina pectoris (principal); I10 Essential (primary) hypertension; E78.5 Hyperlipidemia, unspecified; Z82.49 Family history of ischemic heart disease and other diseases of the circulatory system; F17.210 Nicotine dependence, cigarettes, uncomplicated
CPT/HCPCS: 93454; J2250; J2001; J1644; Q9967; J3010; 93458

== ENCOUNTER 2023-04-28 12:14 | Emergency (ER) | payer OTHER ==
[2023-04-28] MEDS ORDERED: LORazepam 2 MG/ML INJ IV STA (12:37)
--- NOTE | 2023-04-28 12:54 | ED ---
SOB HPI - General Chief Complaint: Shortness of Breath Stated Complaint: Anxiety, History of TIA,AFIB Time Seen by Provider: 04/28/23 12:25 Source: patient, EMS Mode of arrival: EMS - History of Present Illness Initial Comments: This patient is a 62-year-old man who progressive evaluation for constellation of symptoms that started this morning around 10:30. The patient states that at the time he was driving. He noticed that he was feeling short of breath. He is feeling dizzy and anxious as well. The patient states he had similar symptoms March 14, was seen at a hospital in [place], and was told that he had a stroke. He was also having tingling of his left side. Patient states he did not have any residual deficits from that episode. Patient denies headache, ch hipolito in speech or swallowing, weakness or numbness of the extremities. MD Complaint: shortness of breath, anxiety Onset/Timin -: hour(s) Consistency: constant Improves With: nothing Worsens With: nothing Treatments Prior to Arrival: none - Related Data Home Oxygen Therapy: No Home Medications Medication Instructions Recorded Confirmed Widen-3/Dha/Epa/Fish Oil [Fish Oil 1 cap PO DAILY 12/30/22 04/28/23 1,000 mg Softgel] Apixaban [Eliquis] 5 mg PO BID 04/28/23 04/28/23 Rosuvastatin [Crestor] 10 mg PO DAILY 04/28/23 04/28/23 lisinopriL [Zestril] 10 mg PO DAILY 04/28/23 04/28/23 Allergies Allergy/AdvReac Type Severity Reaction Status Date / Time wheat Allergy nasal Verified 04/28/23 14:41 drainage Review of Systems ROS Statement: Those systems with pertinent positive or pertinent negative responses have been documented in the HPI. ROS Other: All systems not noted in ROS Statement are negative. Constitutional: Denies: fever, chills Respiratory: Reports: dyspnea. Denies: cough, wheezes Cardiovascular: Reports: palpitations. Denies: chest pain, edema, syncope Gastrointestinal: Denies: abdominal pain, nausea, vomiting, diarrhea Genitourinary: Denies: dysuria, hematuria Musculoskeletal: Denies: back pain Skin: Denies: rash Neurological: Denies: headache, weakness Psychiatric: Reports: anxiety Past Medical History Past Medical History: CVA/TIA Additional Past Medical History / Comment(s): had CVA on 03-14-23-no residual (symptoms at time of CVA loss complete rt side of body-lasted about 2-3 minutes- had fall/no injuries),December 2022 had chest discomfort w/ admission to [facility], abn stress test February 2023 History of Any Multi-Drug Resistant Organisms: None Reported Additional Past Surgical History / Comment(s): jocy leg veins procedures, lt neck saliva gland removed 1980d Past Anesthesia/Blood Transfusion Reactions: No Reported Reaction Additional Past Anesthesia/Blood Transfusion Reaction / Comment(s): no hx blood transfusion Past Psychological History: No Psychological Hx Reported Smoking Status: Current every day smoker - Past Family History Mother Family Medical History: Cancer Father Family Medical History: Myocardial Infarction (PR) Additional Family Medical History / Comment(s): w/ PR at age 57 General Exam General appearance: alert, anxious Head exam: Present: atraumatic, normocephalic Eye exam: Present: normal appearance. Absent: scleral icterus, conjunctival injection ENT exam: Present: mucous membranes dry Neck exam: Present: normal inspection Respiratory exam: Present: normal lung sounds bilaterally. Absent: respiratory distress, wheezes, rales, rhonchi, stridor, accessory muscle use Cardiovascular Exam: Present: regular rate, normal rhythm, normal heart sounds. Absent: systolic murmur, diastolic murmur, rubs, gallop GI/Abdominal exam: Present: soft. Absent: distended, tenderness, guarding, rebound, rigid, mass Extremities exam: Present: normal inspection, normal capillary refill. Absent: pedal edema, calf tenderness Back exam: Present: normal inspection. Absent: CVA tenderness (R), CVA tenderness (L) Neurological exam: Present: alert, CN II-XII intact. Absent: motor sensory deficit Psychiatric exam: Present: anxious Skin exam: Present: warm, dry, intact, normal color. Absent: rash Course Vital Signs 04/28/23 04/28/23 04/28/23 12:16 13:59 16:30 Temperature 97.4 F L Pulse Rate 66 17 L 45 L Respiratory 16 17 15 Rate Blood Pressure 155/138 106/80 106/80 O2 Sat by Pulse 100 96 100 Oximetry 04/28/23 04/28/23 17:00 18:07 Temperature 98 F Pulse Rate 46 L 46 L Respiratory 13 16 Rate Blood Pressure 121/90 121/90 O2 Sat by Pulse 99 98 Oximetry Medical Decision Making - Medical Decision Making The patient had chest x-ray which I interpreted as negative for acute infiltrate, pneumothorax, congestive heart failure The patient had computed tomography scan of the chest which I interpreted as negative for acute pulmonary embolism or infiltrate. Was pt. sent in by a medical professional or institution (, [facility], [facility], urgent ca re, hospital, or prison...) When possible be specific @ -[No] Did you speak to anyone other than the patient for history (EMS, parent, family, police, friend...)? What history was obtained from this source @ -[No] Did you review nursing and triage notes (agree or disagree)? Why? @ -[I reviewed and agree with nursing and triage notes] Were old charts reviewed (outside hosp., previous admission, EMS record, old EKG, old radiological studies, urgent care reports/EKG's, prison records)? Report findings @ -[No old charts were reviewed] Differential Diagnosis (chest pain, altered mental status, abdominal pain women, abdominal pain men, vaginal bleeding, weakness, fever, dyspnea, syncope, headache, dizziness, GI bleed, back pain, seizure, CVA, palpatations, mental health, musculoskeletal)? @ -[Differential Palpitations Ventricular arrhythmias, atrial arrhythmias, myocardial infarction, anemia, thyrotoxicosis, electrolyte imbalance, hypokalemia, pulmonary embolism, pulmonary disease, drugs, alcohol, anxiety, stress.... This is not meant to be an all-inclusive list. EKG interpreted by me (3pts min.). @ -[I interpreted As above] X-rays interpreted by me (1pt min.). @ -[I interpreted as above CT interpreted by me (1pt min.). @ -[I interpreted as above U/S interpreted by me (1pt. min.). @ -[None done] What testing was considered but not performed or refused? (CT, X-rays, U/S, labs)? Why? @ -[None] What meds were considered but not given or refused? Why? @ -[None] Did you discuss the management of the patient with other professionals (professionals i.e. , [facility], [facility], lab, RT, psych nurse, manager social work, registered sales assistant, teacher, air control/anti air warfare officer, case picker)? Give summary @ -[No] Was smoking cessation discussed for >3mins.? @ -[No] Was critical care preformed (if so, how long)? @ -[No] Were there social determinants of health that impacted care today? How? (Homelessness, low income, unemployed, alcoholism, drug addiction, transportation, low edu. Level, literacy, decrease access to med. care, [facility], rehab)? @ -[No] Was there de-escalation of care discussed even if they declined (Discuss DNR or withdrawal of care, Hospice)? DNR status @ -[No] What co-morbidities impacted this encounter? (DM, HTN, Smoking, COPD, CAD, Cancer, CVA, ARF, Chemo, Hep., AIDS, mental health diagnosis, sleep apnea, morbid obesity)? @ -[None] Was patient admitted / discharged? Hospital course, mention meds given and route, prescriptions, significant lab abnormalities, going to OR and other pertinent info. @ -[Patient is 62-year-old man presenting with palpitations and other symptoms that in combination with his recent travel or concerning for possible PE. The patient did have d-dimer that was positive, therefore went for computed tomography scan that subsequently was negative. Patient was feeling better following treatment here. We discussed appropriate further care and follow-up as well as return parameters. Undiagnosed new problem with uncertain prognosis? @ -[No] Drug Therapy requiring intensive monitoring for toxicity (Heparin, Nitro, Insulin, Cardizem)? @ -[No] Were any procedures done? @ -[No] Diagnosis/symptom? @ -[Acute palpitations Acute, or Chronic, or Acute on Chronic? @ -[Acute Uncomplicated (without systemic symptoms) or Complicated (systemic symptoms)? @ -[Uncomplicated Side effects of treatment? @ -[No] Exacerbation, Progression, or Severe Exacerbation? @ -[No] Poses a threat to life or bodily function? How? (Chest pain, USA, PR, pneumonia, PE, COPD, DKA, ARF, appy, cholecystitis, CVA, Diverticulitis, Homicidal, Suicidal, threat to staff... and all critical care pts) @ -[No] - Lab Data Result diagrams: 04/28/23 13:13 04/28/23 13:13 Lab Results 04/28/23 04/28/2323 Range/Units 13:13 13:13 13:13 WBC 5.1 (3.8-10.6) k/uL RBC 5.01 (4.30-5.90) m/uL Hgb 16.3 (13.0-17.5) gm/dL Hct 47.9 (39.0-53.0) % MCV 95.6 (80.0-100.0) fL MCH 32.5 (25.0-35.0) pg MCHC 34.0 (31.0-37.0) g/dL RDW 12.7 (11.5-15.5) % Plt Count 154 (150-450) k/uL MPV 8.3 Neutrophils % 64 % Lymphocytes % 27 % Monocytes % 7 % Eosinophils % 1 % Basophils % 0 % Neutrophils # 3.3 (1.3-7.7) k/uL Lymphocytes # 1.4 (1.0-4.8) k/uL Monocytes # 0.3 (0-1.0) k/uL Eosinophils # 0.1 (0-0.7) k/uL Basophils # 0.0 (0-0.2) k/uL PT 10.8 (9.0-12.0) sec INR 1.0 (<1.2) APTT 25.0 (22.0-30.0) sec D-Dimer 1.05 H (<0.60) mg/L FEU Sodium 140 (137-145) mmol/L Potassium 4.1 (3.5-5.1) mmol/L Chloride 109 H (98-107) mmol/L Carbon Dioxide 22 (22-30) mmol/L Anion Gap 9 mmol/L BUN 15 (9-20) mg/dL Creatinine 0.80 (0.66-1.25) mg/dL Est GFR (CKD-EPI)AfAm >90 (>60 ml/min/1.73 sqM) Est GFR (CKD-EPI)NonAf >90 (>60 ml/min/1.73 sqM) Glucose 97 (74-99) mg/dL Lactic Ac Sepsis Rflx Plasma Lactic Acid Boo (0.7-2.0) mmol/L Calcium 8.9 (8.4-10.2) mg/dL Total Bilirubin 0.6 (0.2-1.3) mg/dL AST 27 (17-59) U/L ALT 25 (4-49) U/L Alkaline Phosphatase 65 (38-126) U/L Troponin I (0.000-0.034) ng/mL NT-Pro-B Natriuret Pep 205 pg/mL Total Protein 6.8 (6.3-8.2) g/dL Albumin 4.0 (3.5-5.0) g/dL 04/28/23 04/28/23 04/28/23 Range/Units 13:13 13:13 13:42 WBC (3.8-10.6) k/uL RBC (4.30-5.90) m/uL Hgb (13.0-17.5) gm/dL Hct (39.0-53.0) % MCV (80.0-100.0) fL MCH (25.0-35.0) pg MCHC (31.0-37.0) g/dL RDW (11.5-15.5) % Plt Count (150-450) k/uL MPV Neutrophils % % Lymphocytes % % Monocytes % % Eosinophils % % Basophils % % Neutrophils # (1.3-7.7) k/uL Lymphocytes # (1.0-4.8) k/uL Monocytes # (0-1.0) k/uL Eosinophils # (0-0.7) k/uL Basophils # (0-0.2) k/uL PT (9.0-12.0) sec INR (<1.2) APTT (22.0-30.0) sec D-Dimer (<0.60) mg/L FEU Sodium (137-145) mmol/L Potassium (3.5-5.1) mmol/L Chloride (98-107) mmol/L Carbon Dioxide (22-30) mmol/L Anion Gap mmol/L BUN (9-20) mg/dL Creatinine (0.66-1.25) mg/dL Est GFR (CKD-EPI)AfAm (>60 ml/min/1.73 sqM) Est GFR (CKD-EPI)NonAf (>60 ml/min/1.73 sqM) Glucose (74-99) mg/dL Lactic Ac Sepsis Rflx Y Plasma Lactic Acid Boo 3.3 H* (0.7-2.0) mmol/L Calcium (8.4-10.2) mg/dL Total Bilirubin (0.2-1.3) mg/dL AST (17-59) U/L ALT (4-49) U/L Alkaline Phosphatase (38-126) U/L Troponin I <0.012 (0.000-0.034) ng/mL NT-Pro-B Natriuret Pep pg/mL Total Protein (6.3-8.2) g/dL Albumin (3.5-5.0) g/dL 04/28/23 Range/Units 17:36 WBC (3.8-10.6) k/uL RBC (4.30-5.90) m/uL Hgb (13.0-17.5) gm/dL Hct (39.0-53.0) % MCV (80.0-100.0) fL MCH (25.0-35.0) pg MCHC (31.0-37.0) g/dL RDW (11.5-15.5) % Plt Count (150-450) k/uL MPV Neutrophils % % Lymphocytes % % Monocytes % % Eosinophils % % Basophils % % Neutrophils # (1.3-7.7) k/uL Lymphocytes # (1.0-4.8) k/uL Monocytes # (0-1.0) k/uL Eosinophils # (0-0.7) k/uL Basophils # (0-0.2) k/uL PT (9.0-12.0) sec INR (<1.2) APTT (22.0-30.0) sec D-Dimer (<0.60) mg/L FEU Sodium (137-145) mmol/L Potassium (3.5-5.1) mmol/L Chloride (98-107) mmol/L Carbon Dioxide (22-30) mmol/L Anion Gap mmol/L BUN (9-20) mg/dL Creatinine (0.66-1.25) mg/dL Est GFR (CKD-EPI)AfAm (>60 ml/min/1.73 sqM) Est GFR (CKD-EPI)NonAf (>60 ml/min/1.73 sqM) Glucose (74-99) mg/dL Lactic Ac Sepsis Rflx Plasma Lactic Acid Boo 0.9 (0.7-2.0) mmol/L Calcium (8.4-10.2) mg/dL Total Bilirubin (0.2-1.3) mg/dL AST (17-59) U/L ALT (4-49) U/L Alkaline Phosphatase (38-126) U/L Troponin I (0.000-0.034) ng/mL NT-Pro-B Natriuret Pep pg/mL Total Protein (6.3-8.2) g/dL Albumin (3.5-5.0) g/dL Disposition Clinical Impression: Acute dyspnea Disposition: HOME SELF-CARE Condition: Good Instructions (If sedation given, give patient instructions): Shortness of Breath (ED) Is patient prescribed a controlled substance at d/c from ED?: No Referrals: Osmin Myers MD [Primary Care Provider] - 1-2 days Marcelo Gregg MD [STAFF PHYSICIAN] - 1-2 days Tammy Mackey MD [REFERRING] - 1-2 days
[2023-04-28 13:26] LABS: Basophils % (A) 0 %; Eosinophils # (A) 0.1 k/uL (0-0.7); Eosinophils % (A) 1 %; HCT 47.9 % (39.0-53.0); HGB 16.3 gm/dL (13.0-17.5); Lymphocytes # (A) 1.4 k/uL (1.0-4.8); Lymphocytes % (A) 27 %; MCH 32.5 pg (25.0-35.0); MCV 95.6 fL (80.0-100.0); Mean Platelet Volume 8.3; Monocytes # (A) 0.3 k/uL (0-1.0); Monocytes % (A) 7 %; Neutrophils # (A) 3.3 k/uL (1.3-7.7); Neutrophils % (A) 64 %; Platelet Count 154 k/uL (150-450); RBC 5.01 m/uL (4.30-5.90); RDW 12.7 % (11.5-15.5); WBC 5.1 k/uL (3.8-10.6)
[2023-04-28 13:37] LABS: ALT 25 U/L (4-49); AST 27 U/L (17-59); African American GFR (CKD) >90 (>60 ml/min/1.73 sqM); Alkaline Phosphatase 65 U/L (38-126); Anion Gap 9 mmol/L; Blood Urea Nitrogen 15 mg/dL (9-20); Calcium 8.9 mg/dL (8.4-10.2); Carbon Dioxide 22 mmol/L (22-30); Chloride 109 mmol/L (98-107); Glucose 97 mg/dL (74-99); Non-African American GFR(CKD) >90 (>60 ml/min/1.73 sqM); Potassium 4.1 mmol/L (3.5-5.1); Sodium 140 mmol/L (137-145); Total Bilirubin 0.6 mg/dL (0.2-1.3); Total Protein 6.8 g/dL (6.3-8.2)
[2023-04-28 13:41] LABS: Prothrombin Time 10.8 sec (9.0-12.0)
[2023-04-28] MEDS ORDERED: SODIUM CHLORIDE 0.9% 1,000 ML IV ONE ×2 (13:43→17:20)
[2023-04-28 13:45] LABS: NT-Pro-B-Type Natriuretic Pept 205 pg/mL
--- NOTE | 2023-04-28 14:17 | XR ---
EXAMINATION TYPE: XR chest 2V DATE OF EXAM: 04/28/2023 COMPARISON: 12/30/2022 INDICATION: Difficulty breathing TECHNIQUE: Frontal and lateral views of the chest are obtained. FINDINGS: The heart size is normal. The pulmonary vasculature is normal. The lungs are clear. Increased AP diameter and increased retrosternal airspace. IMPRESSION: 1. No acute pulmonary process.
--- NOTE | 2023-04-28 16:32 | CT ---
EXAMINATION TYPE: CT chest angio for PE CT DLP: 351.4 mGycm, Automated exposure control for dose reduction was used. DATE OF EXAM: 04/28/2023 4:25 PM COMPARISON: CT same back to 06/27/2019. Chest radiograph same day CLINICAL INDICATION:Male, 62 years old with history of dyspnea, possible PE; SOB, chest pain TECHNIQUE/CONTRAST: CTA scan of the thorax is performed with IV Contrast, patient injected with 100 mL of Isovue 370, MIP images are created and reviewed these are created on a separate workstation.. FINDINGS: Pulmonary Artery: There is no evidence for a filling defect within the pulmonary vasculature to sugge st acute pulmonary embolism. The pulmonary artery is of normal size. Lungs/Pleura: Scattered mild paraseptal emphysema changes. No evidence of focal consolidation, pleura l effusion or pneumothorax. Airway: Large airways are patent. Heart: Heart is within normal limits for size. Vasculature: No evidence of aortic aneurysm. Mediastinum: No gross evidence of adenopathy. Musculoskeletal: No acute osseous abnormalities Soft Tissues: Unremarkable. Lower neck: No significant findings. Upper Abdomen: Calcifications left adrenal gland stable back to 2019. Morphology of both adrenal glan ds are stable. IMPRESSION: 1. No evidence of pulmonary embolism. 2. Mild emphysema changes.
[2023-04-28 17:20] VITALS: BP 121/90; PULSE 46
[2023-04-28 18:09] VITALS: RESP 16; TEMP 98
== END 2023-04-28 18:09 | disposition home or self-care (01) ==
LOC: EC 12:14
DX: R06.00 Dyspnea, unspecified (principal); I48.91 Unspecified atrial fibrillation; Z86.73 Personal history of transient ischemic attack (TIA), and cerebral infarction without residual deficits; F17.200 Nicotine dependence, unspecified, uncomplicated; Z91.018 Allergy to other foods; Z79.01 Long term (current) use of anticoagulants; Z79.899 Other long term (current) drug therapy
CPT/HCPCS: 36415; 93005; 85379; 83880; 80053; 83605; 84484; 85025; 85610; 85730; 71046; 71275; 99285; 96374; 96361 ×5; J2060; Q9967